=== PATIENT | male | born 1955 | race Caucasian/White ===

== ENCOUNTER → 2020-05-13 11:24 | Outpatient (CLI) | payer OTHER, SELFPAY ==
[2020-05-13 13:25] LABS: COVID19 -Nasal RAPID Negative (Negative)
== END ==
PROVIDERS: Referring Provider Orthopaedic Surgery; Visit Provider Physician Assistant
DX: Z11.59 Encounter for screening for other viral diseases (principal)
CPT/HCPCS: 87635

== ENCOUNTER 2020-05-14 08:33 | Day surgery (SDC) | payer OTHER, SELFPAY ==
[2020-05-12 07:48] VITALS: BMI 25.5
[2020-05-14] VITALS (10 sets, daily range): BP systolic 100–123; BP diastolic 60–79; PULSE 61–77; RESP 8–19; TEMP 36–37.3; O2SAT 88–95; BMI 25.0
[2020-05-14] MEDS: LACTATED RINGERS 1,000 ML 42 ML IV (09:11)
[2020-05-14] MEDS: MIDAZOLAM 2 MG/2 ML VIAL IV (10:05)
--- NOTE | 2020-05-14 10:12 | PM.PREOP ---
Pre-operative Note COVID-19 COVID-19 status: Negative Result date/Date tested (Pos, Neg/Pending): 05/11/20 Interval Note History & Physical reviewed/Exam performed by Physician: Yes Changes to H&P: No
[2020-05-14] MEDS: CEFAZOLIN 2 GM/100 ML FROZ.PIGGY IV (10:22)
--- NOTE | 2020-05-14 10:31 | SUR.PREOP ---
Block start time [1005] . Monitoring initiated and maintained throughout procedure. Oxygen and medications given per anesthesiologist instructions. Patient remained stable throughout procedure, no adverse reactions noted. Block end time [1016].
--- NOTE | 2020-05-14 11:01 | SUR.OPER ---
Beach chair with Maquet shoulder positioner. Lower body on padded OR bed. Head in foam padded head cradle, secured with straps. Non-operative arm secured <90 degrees abduction. Pillow under knees. Safety belt at thigh. Cloth tape over blanket over lower legs.
[2020-05-14] MEDS: SODIUM CHLORIDE IRRIG SOLUTION 3,000 ML, EPINEPHrine 1 MG IRR (11:12)
[2020-05-14] MEDS: LIDOCAINE 1% W/EPI 20 ML INJ (11:13)
--- NOTE | 2020-05-14 11:40 | P.OP_ITS ---
Operative Date/Time/Diagnoses Date of procedure: 05/14/20 Time of procedure: 11:00 Pre-op diagnosis: Right shoulder stiffness, right subacromial impingement, partial rotator cuff tear. Post-op diagnosis: same Procedure & Clinicians Procedure: Right shoulder manipulation under anesthesia. Arthroscopic lysis of adhesions with subacromial decompression distal clavicle excision and extensive debridement. Same procedure as scheduled: Yes Indications: Right shoulder stiffness and rotator cuff tear unresponsive to conservative treatment. Surgeon: Ernesto Cee Online Publisher: Yasmine Brooks Anesthesia Type: General and Peripheral nerve block Operative Notes Findings: No sign of any significant arthritic changes to the glenohumeral joint. Some degenerative changes throughout the labrum but no significant SLAP tear or Bankart tear. No loose bodies. Mild to moderate partial-thickness tearing to the articular surface of the rotator cuff but less than 50%. Subacromial and subdeltoid synovitis and bursitis. Ron lesion in the acromial arch as well as arthritic changes to the AC joint. No sign of any significant bursal sided partial tearing. No sign of any full-thickness tears. Closure Type: primary Specimen(s): none sent Estimated Blood Loss (mL): 5 Blood products transfused: none Procedure in detail: On date of service, Patient was met in the holding area. The operative site was signed and witnessed by the OR staff. The surgeries once again discussed with the patient and any remaining questions they had were answered fully. Patient was taken back to the operating theater and placed on the operating table in a supine position. Great care was taken to ensure that all bony prominences were properly padded. Patient was then placed into the beach chair position. The head and neck were properly positioned and secured. A timeout was performed verifying patient's name, procedure, and the operative site. First we proceeded with a manipulation under anesthesia. Before the manipulation, patient had just under 90? of forward flexion and 75 of abduction. 15? of external rotation and internal rotation to the side of the leg. During the manipulation under anesthesia 1 can feel the scar tissue release as the shoulder was manipulated. After the manipulation, patient had full forward flexion as well as abduction. With the arm abducted to 90? had 80? of external rotation 75? of internal rotation. Next, The upper extremity was then prepped and draped in the normal sterile fashion. Previously, the bony anatomy and portal sites were marked out as well as injected with Marcaine with epinephrine. An 11 blade was used to make an incision in the posterior aspect of the shoulder. The camera was placed, and a diagnostic shoulder scope was performed. Findings listed above. Next under direct visualization, a anterior portal was made. There was bleeding in the glenohumeral joint from the manipulation. Shaver was brought in and a debridement of the glenohumeral joint was performed. The degenerative changes to the labral tissue was cleaned up using the shaver. Patient had partial tearing to the articular surface of the rotator cuff which was also debrided. No sign of any significant tearing into the bicipital anchor or the biceps tendon. No sign of any biceps instability. Next the camera was placed into the subacromial space. A lateral portal was obtained under direct visualization. A combination of the shaver and vapor wand, a debridement of the inflamed tissue as well as inflamed bursa was performed. The lateral gutter was also cleaned out. This gave us good visualization of the bursal aspect of the rotator cuff as well as the acromial arch. There was an obvious impingement lesion in the acromial arch. Next we turned our attention to the subacromial decompression. Next, a mechanical rasp was then used to do a subacromial decompression. This allowed us to convert the acromion to a type I acromial. This also allowed us to shave down the bony lesion in the acromial space. The rasp was placed into the lateral portal as well as the anterior portal in order to do a complete subacromial decompression. We next turned our attention to the distal clavicle. Using the shaver in the vapor wand we were able to clean out all the soft tissue around the distal clavicle as well as into the a.c. joint. This gave us good visualization of the arthritic changes to the distal clavicle as well as good of the a.c. joint allowing us to assess our distal clavicle excision. Of the inferior osteophytes coming off the distal clavicle. Using the mechanical rasp in the anterior portal, we were able to remove the inferior osteophytes as well as do a distal clavicle excision. The camera was then placed into the anterior portal which gave us a direct visualization of the a.c. joint allowing us to assess the distal clavicle excision. We then turned our attention to the rotator cuff tear. There was no signs of any high-grade bursal sided tears. Shaver was used to clean up any fraying of the rotator cuff on the bursal side. Shaver was also used to remove any remaining inflamed bursal or synovial tissue. The shoulder was then taken through range of motion and there was no sign of any additional impingement. Patient's shoulder was then cleaned dried and dressed and patient was taken to the PACU in stable condition. Complications: none Post-operative Condition: stable Disposition: PACU
--- NOTE | 2020-05-14 11:54 | SUR.PHASEI ---
Assumed care from Kerry.
[2020-05-14] MEDS: fentaNYL 100 MCG/2 ML INJ IV ×2 (12:00→12:10)
[2020-05-14] MEDS: OXYCODONE IR 5 MG TABLET PO (12:23)
== END 2020-05-14 13:15 | disposition home or self-care (01) ==
PROVIDERS: Referring Provider Orthopaedic Surgery; Visit Provider Orthopaedic Surgery
PROC: (CPT 29827; principal; 2020-05-14 09:45)
DX: M75.111 Incomplete rotator cuff tear or rupture of right shoulder, not specified as traumatic (principal); M75.41 Impingement syndrome of right shoulder; M25.611 Stiffness of right shoulder, not elsewhere classified; M19.011 Primary osteoarthritis, right shoulder; G56.03 Carpal tunnel syndrome, bilateral upper limbs; M75.01 Adhesive capsulitis of right shoulder
CPT/HCPCS: 29823; 29824; 29826; 64450; J0171; J0690; J1100; J2250; J2405; J2704; J3010